=== PATIENT | female | born 1990 | race Caucasian/White ===

== ENCOUNTER 2020-05-01 11:03 | Outpatient (CLI) | payer OTHER, SELFPAY ==
[2020-05-02 01:31] LABS: SARS-CoV-2 RNA PCR Negative
== END 2020-05-01 11:04 | disposition home or self-care (01) ==
LOC: CHSLAB 11:07
PROVIDERS: PCP Family Medicine; Visit Provider Family Medicine
DX: Z20.828 Contact with and (suspected) exposure to other viral communicable diseases (principal)
CPT/HCPCS: 87635; C9803; U0003

== ENCOUNTER 2020-09-10 15:53 | Outpatient (CLI) | payer OTHER, SELFPAY ==
--- NOTE | ~2020-09-10 | XR_ITS ---
XR abdomen obstructive series DATE: 09/10/2020 16:18 INDICATION: Right acute abdominal pain. Pelvic and perineal pain. TECHNIQUE: Supine and upright AP views COMPARISON: None FINDINGS: There is a prominent of fecal material in the colon but no evidence of bowel obstruction. N o intraperitoneal free air. No visceromegaly or significant abnormal calcification. The psoas shadows are intact. No visceromegal y is detected. The lung bases are clear. Normal heart size. No pleural effusion. IMPRESSION: No evidence of bowel obstruction Reviewed, dictated and finalized at [facility]. Reviewed, dictated and finalized at location A.
[2020-09-10 16:21] LABS: Basophils Absolute Auto 0.08 K/mm3 (0.00-0.10); Basophils Percent Auto 0.8 % (0.0-1.0); Eosinophils Absolute Auto 0.41 K/mm3 (0.02-0.50); Hematocrit 37.8 % (35.0-49.0); Immature Granulocyte Absolute 0.03 K/mm3 (0.00-0.00); Immature Granulocyte Percent A 0.3 % (0.0-0.0); Lymphocytes Absolute Auto 2.77 K/mm3 (1.10-4.50); Lymphocytes Percent Auto 26.8 % (18.0-42.0); Mean Corpuscular HGB Conc 34.4 g/dL (32.0-36.0); Mean Corpuscular Hemoglobin 30.4 pg (27.0-31.0); Mean Corpuscular Volume 88.5 fL (78.0-102.0); Monocytes Absolute Auto 0.72 K/mm3 (0.10-0.90); Neutrophils Absolute Auto 6.3 K/mm3 (1.7-7.2); Neutrophils Percent Auto 61.1 % (50.0-70.0); Platelet Count Result 337 K/mm3 (150-420); Red Blood Count 4.27 M/mm3 (4.20-5.40); Red Cell Distribution Width 11.9 % (11.6-14.4); White Blood Count 10.4 K/mm3 (4.8-10.8)
[2020-09-10 16:24] LABS: Appearance Urine Clear (Clear); Bilirubin Urine Negative (Negative); Color Urine Yellow (Yellow); Glucose Urine UA Negative (Negative); Ketones Urine Negative (Negative); Leukocyte Esterase Ur Negative (Negative); Nitrate Urine Negative (Negative); Protein Urine Negative (Negative); Specific Grav Ur >= 1.030 (1.010-1.020); Urobilinogen Urine 0.2 mg/dL (0.2-1.0); pH Urine 5.5 (5.0-8.0)
[2020-09-10 16:32] LABS: Add Urine Microscopic? YES; Blood Urine Trace-Intact (Negative)
[2020-09-10 16:33] LABS: Bacteria Urine 1+ /hpf; Mucus Urine Heavy /lpf; Squamous Epithelial Cell Urine Moderate /hpf (Few); WBC Urine 0-3 /hpf (0-3)
[2020-09-10 16:36] LABS: Alanine Aminotransferase 21 U/L (14-59); Alkaline Phosphatase 67 U/L (46-116); Amylase 36 U/L (25-115); Anion Gap 8 mmol/L (8-16); Aspartate Amino Transferase 17 U/L (15-37); Bilirubin,Total 0.5 mg/dL (0.00-1.00); Blood Urea Nitrogen 13 mg/dL (7-18); Calcium 8.9 mg/dL (8.5-10.1); Carbon Dioxide 29 mmol/L (21-32); Chloride 101 mmol/L (98-108); Estimated Glomerular Filt Rate > 60; Glucose 78 mg/dL (70-99); Lipase 57 U/L (73-393); Osmolality Calculated 285 mOsm/kg (285-295); Potassium 3.4 mmol/L (3.5-5.1); Sodium 138 mmol/L (136-145); Total Protein 7.2 g/dL (6.4-8.2)
== END 2020-09-10 15:54 | disposition home or self-care (01) ==
LOC: CHSLAB 15:54
PROVIDERS: PCP Family Medicine; Visit Provider Family Medicine
DX: R10.2 Pelvic and perineal pain (principal)
CPT/HCPCS: 36415; 74019; 80053; 81001; 82150; 83690; 85025

== ENCOUNTER 2020-09-16 15:28 | Outpatient (CLI) | payer OTHER, SELFPAY ==
--- NOTE | ~2020-09-16 | US_ITS ---
EXAMINATION: US pelvic complete EXAM DATE: 09/16/2020 16:06 INDICATION: Pelvic pain. TECHNIQUE: Pelvic transabdominal sonogram was performed. There are multiple grayscale and Doppler im ages available for interpretation. There is no prior study for comparison. FINDINGS: Uterus measures 6.9 x 3.2 x 4.8 cm, and is morphologically normal. Endometrial stripe john sures 6-7 mm, within normal limits. There is no free pelvic fluid. Right adnexa: The ovary measures 3.3 x 2.7 x 3.0 cm and is morphologically normal. Ovarian vascular f low confirmed. Left adnexa: The ovary measures 2.4 x 1.2 x 0.9 cm and is morphologically normal. Ovarian vascular fl ow confirmed. IMPRESSION: Unremarkable pelvic ultrasound exam. Reviewed, dictated and finalized at location A.
== END 2020-09-16 15:29 | disposition home or self-care (01) ==
LOC: CHSIMG 15:29
PROVIDERS: PCP Family Medicine; Visit Provider Family Medicine
DX: R10.2 Pelvic and perineal pain (principal)
CPT/HCPCS: 76856

== ENCOUNTER 2021-07-02 15:08 | Outpatient (CLI) | payer OTHER, SELFPAY ==
[2021-07-02 16:24] LABS: SARS-CoV-2 Ag Positive (Negative)
== END 2021-07-02 15:09 | disposition home or self-care (01) ==
LOC: CHSLAB 15:12
PROVIDERS: PCP Family Medicine; Visit Provider Family Medicine
DX: U07.1 COVID-19 (principal); J06.9 Acute upper respiratory infection, unspecified
CPT/HCPCS: 87426; C9803

== ENCOUNTER 2021-11-04 18:45 | Emergency (ER) | payer OTHER, SELFPAY ==
--- NOTE | ~2021-11-04 | CT_ITS ---
EXAMINATION: CT abdomen pelvis wo con DATE: 11/04/2021 20:02 INDICATION: Right upper quadrant abdominal pain radiating to the back. Nausea. TECHNIQUE: Computed tomography (CT) of the abdomen and pelvis was performed without intravenous contr ast. Automated exposure control and iterative reconstruction technique were employed. The dose-length product was 351.11 mGy-cm. COMPARISON: CT abdomen and pelvis 12/01/2016 FINDINGS: The visualized portions of the lung bases are clear without pneumonia or pleural effusion. The heart size is normal. No pericardial effusion. The liver is normal. The gallbladder is distended. The spleen, pancreas, adrenal glands, and kidneys are normal. There is no urolithiasis. There is div erticulosis of the colon without evidence of diverticulitis. The appendix is normal. There are no pat hologically enlarged lymph nodes. There is no free intraperitoneal fluid. There is a benign bone kimberly nd in left femoral head. There is mild thoracic spondylosis. IMPRESSION: 1. Gallbladder distention suspicious for acute cholecystitis. Ultrasound is recommended. Reviewed, dictated and finalized at location A. IMPRESSION: 1. Gallbladder distention suspicious for acute cholecystitis. Ultrasound is rec ommended.
[2021-11-04 19:00] VITALS: BP 116/94; PULSE 98; RESP 16; TEMP 36.6; O2SAT 100
[2021-11-04 19:18] LABS: Appearance Urine Clear (Clear); Bilirubin Urine Negative (Negative); Color Urine Yellow (Yellow); Glucose Urine UA Negative (Negative); Ketones Urine Negative (Negative); Leukocyte Esterase Ur Negative (Negative); Nitrate Urine Negative (Negative); Protein Urine Negative (Negative); Specific Grav Ur >= 1.030 (1.010-1.020); Urobilinogen Urine 0.2 mg/dL (0.2-1.0); pH Urine 5.5 (5.0-8.0)
[2021-11-04 19:22] LABS: Add Urine Microscopic? YES; Bacteria Urine Trace /hpf; Blood Urine Trace-Intact (Negative); Squamous Epithelial Cell Urine Few /hpf (Few); WBC Urine 0-3 /hpf (0-3)
[2021-11-04 19:23] LABS: Mucus Urine Few /lpf; Pregnancy On Board Control Positive; Urine Pregnancy Test Negative
[2021-11-04] MEDS: SODIUM CHLORIDE 0.9% IV 1,000 ML 999 ML IV CONT (19:27)
[2021-11-04] MEDS: KETOROLAC 30 MG/ML VIAL (*BKC) IV PUSH (19:28)
--- NOTE | 2021-11-04 19:31 | ED.ABDPAIN ---
HPI - Abdominal Pain General Chief Complaint: Abdominal Pain Stated Complaint: PAIN IN rt SIDE Source: patient Mode of arrival: ambulatory History of Present Illness HPI narrative: this is a 31-year-old female who presents with abdominal pain left flank area radiating into her left groin and into the right lower quadrant with no fever chills rates her pain about a 6/10 with no nausea no fever chills no hematuria no shortness of breath or chest pain. MD elicited complaint: abdominal pain and flank pain Onset (ago): day(s) Pain Consistency: intermittent Related Data Allergies Allergy/AdvReac Type Severity Reaction Status Date / Time Penicillins Allergy Unknown Swelling Verified 11/04/21 19:55 of Lip/Tongue/Throat Review of Systems Review of Systems: All systems reviewed & are unremarkable except as noted in HPI and below PMFSH Past Medical History Medical History Tinnitus Social History Social History Smoking status: Never smoker Alcohol intake: current Substance use: current Exam Const: General: no acute distress and alert Orientation/consciousness: patient oriented x3 HENMT: Head: normal to inspection Eyes: Conjunctivae: conjunctivae normal Pupils: Equal, round and reactive pupils present Neck: Neck: normal visual inspection Chest: Chest palpation & inspection: normal inspection of the chest Resp: Effort & Inspection: normal respiratory effort Cardio: Rate: regular rate Rhythm: regular rhythm GI: GI Palp: Yes Soft to palpation and Yes Tenderness to palpation present (GI) Percussion: Yes normal to percussion : General: Yes no CVA tenderness Urinary Catheter: Urinary Catheter: patent and draining and urine clear Back/Spine/Pelvis: Back: no CVA tenderness Skin: General skin exam: normal color Rashes: no rashes Neuro: General: patient oriented x3 Extrem: General: normal to inspection and no pedal edema Psych: Mental Status: mental status grossly normal Affect: normal affect Course Course Emergency Course: Patient received IV fluids and pain medication a reassessment of patient symptoms have improved CT scan and labs reviewed with patient. MDM - Abdominal Pain Lab Data Labs: Lab Results 11/04/21 Range/Units 19:14 Urine Color Yellow (Yellow) Urine Appearance Clear (Clear) Urine pH 5.5 (5.0-8.0) Ur Specific Huntley >= 1.030 H (1.010-1.020) Urine Protein Negative (Negative) Urine Glucose (UA) Negative (Negative) Urine Ketones Negative (Negative) Ur Blood (Man) Trace-intact H (Negative) Urine Nitrate Negative (Negative) Urine Bilirubin Negative (Negative) Urine Urobilinogen 0.2 (0.2-1.0) mg/dL Ur Leukocyte Esterase Negative (Negative) Urine RBC 3-5 H (0-2) /hpf Urine WBC 0-3 (0-3) /hpf Ur Squamous Epith Cells Few (Few) /hpf Urine Bacteria Trace (None) /hpf Urine Mucus Few H /lpf Urine Test Negative Critical Care Time Critical Care Time Critical Care Time: No Discharge Plan Discharge Clinical Impression: Calculous cholecystitis with obstruction Patient Disposition: Home, Self-Care Condition: Stable Instructions: Antibiotic Form, Gallstones (ED) Additional Instructions: take medicine as prescribed and follow-up with primary care physician within the next 1 to 2 days for further evaluation treatment. Prescriptions: New tramadol [Ultram] 50 mg tablet 50 mg PO Q6H PRN (Reason: pain) Qty: 20 RF: 0 ondansetron 4 mg tablet,disintegrating 4 mg PO Q6H PRN (Reason: nausea and vomiting) Qty: 14 RF: 0 Follow-up/Referrals: Ced Willson MD [Primary Care Provider] - Time of Disposition: 20:22
[2021-11-04 19:33] LABS: Basophils Percent Auto 1.3 % (0.0-1.0); Eosinophils Absolute Auto 0.13 K/mm3 (0.02-0.50); Eosinophils Percent Auto 1.7 % (1.0-6.0); Hematocrit 36.9 % (35.0-49.0); Hemoglobin 12.8 g/dL (12.0-15.0); Immature Granulocyte Absolute 0.03 K/mm3 (0.00-0.00); Immature Granulocyte Percent A 0.4 % (0.0-0.0); Lymphocytes Percent Auto 35.9 % (18.0-42.0); Mean Corpuscular HGB Conc 34.7 g/dL (32.0-36.0); Mean Corpuscular Hemoglobin 30.5 pg (27.0-31.0); Mean Corpuscular Volume 88.1 fL (78.0-102.0); Mean Platelet Volume 9.6 fl (9.2-11.8); Monocytes Absolute Auto 0.58 K/mm3 (0.10-0.90); Monocytes Percent Auto 7.4 % (2.0-11.0); Neutrophils Absolute Auto 4.2 K/mm3 (1.7-7.2); Neutrophils Percent Auto 53.3 % (50.0-70.0); Platelet Count Result 334 K/mm3 (150-420); Red Blood Count 4.19 M/mm3 (4.20-5.40); Red Cell Distribution Width 11.8 % (11.6-14.4); White Blood Count 7.8 K/mm3 (4.8-10.8)
--- NOTE | 2021-11-04 19:53 | PC.NURSE ---
PT TO CT AT THIS TIME
[2021-11-04 19:55] LABS: Alanine Aminotransferase 10 U/L (14-59); Albumin Level 3.8 g/dL (3.4-5.0); Alkaline Phosphatase 77 U/L (46-116); Anion Gap 9 mmol/L (8-16); Bilirubin,Total 0.4 mg/dL (0.00-1.00); Blood Urea Nitrogen 12 mg/dL (7-18); Calcium 8.9 mg/dL (8.5-10.1); Carbon Dioxide 24 mmol/L (21-32); Chloride 105 mmol/L (98-108); Estimated CRCL calculation 63 ml/min; Estimated Glomerular Filt Rate > 60; Glucose 83 mg/dL (70-99); Osmolality Calculated 284 mOsm/kg (285-295); Potassium 3.8 mmol/L (3.5-5.1); Sodium 138 mmol/L (136-145); Total Protein 7.3 g/dL (6.4-8.2)
--- NOTE | 2021-11-04 19:59 | PC.NURSE ---
PT HAS RETURNED FROM CT
[2021-11-04 20:08] LABS: Aspartate Amino Transferase 18 U/L (15-37)
[2021-11-04 20:36] VITALS: BP 116/70; PULSE 88; RESP 18; TEMP 36.7; O2SAT 99
== END 2021-11-04 20:36 | disposition home or self-care (01) ==
PROVIDERS: Emergency Provider Emergency Medicine; PCP Family Medicine
DX: K81.9 Cholecystitis, unspecified (principal)
CPT/HCPCS: 36415; 74176; 80053; 81001; 81025; 85025; 96361; 96374; 99284; J1885; J7030

== ENCOUNTER 2021-11-08 08:26 | Emergency (ER) | payer OTHER, SELFPAY ==
[2021-11-08 08:49] VITALS: BP 111/81; PULSE 88; RESP 16; TEMP 36.6; O2SAT 98
[2021-11-08 09:07] LABS: Basophils Absolute Auto 0.1 K/mm3 (0.0-0.1); Basophils Percent Auto 1.3 % (0.2-1.2); Eosinophils Absolute Auto 0.3 K/mm3 (0-0.3); Eosinophils Percent Auto 3.2 % (0-4.4); Hematocrit 42.9 % (37.0-47.0); Hemoglobin 14.6 g/dL (12.0-15.0); Immature Granulocyte Absolute 0.02 K/mm3 (0.00-0.031); Immature Granulocyte Percent A 0.2 % (0-0.5); Lymphocytes Absolute Auto 1.79 K/mm3 (0.9-3.2); Mean Corpuscular Hemoglobin 30.4 pg (26-34); Mean Corpuscular Volume 89.4 fl (80-100); Mean Platelet Volume 9.9 fl (7.4-10.4); Monocytes Absolute Auto 0.5 K/mm3 (0.1-0.6); Monocytes Percent Auto 5.9 % (2.6-8.5); Neutrophils Absolute Auto 5.8 K/mm3 (1.3-6.7); Neutrophils Percent Auto 68.4 % (45.5-73.1); Platelet Count Result 347 k/mm3 (150-375); Red Cell Distribution Width 11.9 % (11.5-14.5); White Blood Count 8.5 K/mm3 (4.5-10.0)
[2021-11-08 09:17] LABS: Alanine Aminotransferase 306 U/L (6-35); Albumin Level 4.3 g/dL (3.5-5.1); Alkaline Phosphatase 177 U/L (38-126); Anion Gap 6 mmol/L (8-16); Aspartate Amino Transferase 109 U/L (14-36); Bilirubin,Total 0.3 mg/dL (0.2-1.3); Blood Urea Nitrogen 8 mg/dL (7-17); Calcium 9.1 mg/dL (8.4-10.2); Carbon Dioxide 29 mmol/L (22-30); Chloride 104 mmol/L (98-107); Estimated Glomerular Filt Rate > 60; Glucose 108 mg/dL (65-110); Lipase 51 U/L (23-300); Potassium 3.9 mmol/L (3.4-5.0); Sodium 139 mmol/L (137-145)
[2021-11-08 09:44] LABS: Add Urine Microscopic? YES; Appearance Urine Slightly Cloudy (Clear); Bilirubin Urine Negative (Negative); Blood Urine Trace-lysed (Negative); Color Urine Yellow (Yellow); Glucose Urine UA Negative (Negative); Ketones Urine Negative (Negative); Leukocyte Esterase Ur 1+ LEU/UL (Negative); Nitrate Urine Negative (Negative); Protein Urine Negative (Negative); Specific Grav Ur 1.025 (1.001-1.035); Urobilinogen Urine 0.2 mg/dL (<2.0); pH Urine 5.5 (5.0-9.0)
[2021-11-08 09:53] LABS: Mucus Urine Heavy /lpf; Squamous Epithelial Cell Urine Many /hpf (Few)
--- NOTE | 2021-11-08 10:04 | ED.ABDPAIN ---
HPI - Abdominal Pain General Chief Complaint: Abdominal Pain Stated Complaint: Gallbladder Issues Time Seen by Provider: 11/08/21 08:52 Source: patient Mode of arrival: ambulatory Limitations: no limitations History of Present Illness HPI narrative: 31 y/o female presents to the ER today for recurrent issues with RUQ abdominal pain. She says that she knows it her her gallbladder and has a history of gallstones. She was seen somewhere else a few days ago and they were not able to do an US and told her that she would need an US for further evaluation so she came here today. She reports that her symptoms are improved today. She just has a dull ache today. She just had full breakfast at 7:30am today, eggs and gayle. She does not have general surgeon to see for follow up for this problem. She has had problems with her gallbladder for a couple of years now. She reports having an US done in the past that did show gallstones but she says at that time, they did not feel like it needed to be removed. She denies any fever or chills. No nausea or vomiting or diarrhea today. Related Data Allergies Allergy/AdvReac Type Severity Reaction Status Date / Time Penicillins Allergy Unknown Swelling Verified 11/08/21 08:52 of Lip/Tongue/Throat Review of Systems Constitutional: Constitutional: Denies chills and Denies fever(s) Eyes: Eyes: Reports no additional eye complaints ENT: Denies sore throat Cardiovascular: Cardiovascular: Denies chest pain Respiratory: Respiratory: Denies cough, Denies dyspnea and Denies wheezing Gastrointestinal: Gastrointestinal: Reports abdominal pain, Denies diarrhea, Denies nausea and Denies vomiting Genitourinary: Genitourinary: Denies flank pain Musculoskeletal: Musculoskeletal: Denies back pain Neurologic: Denies dizziness and Denies headache(s) Psychiatric: Psychiatric: Denies anxiety and Denies depression Endocrine: Endocrine: Denies fatigue Hematologic/Lymphatic: Hematologic/Lymphatic: Reports no additional hematologic/lymphatic complaints Allergic/Immunologic: Allergic/Immunologic: Reports no additional allergic/immunologic complaints [facility] Past Medical History Medical History Tinnitus Social History Social History Smoking status: Never smoker Alcohol intake: current Substance use: current Exam Const: General: healthy appearing, no acute distress and alert Orientation/consciousness: patient oriented x3 HENMT: Head: normal to inspection Eyes: Conjunctivae: conjunctivae normal Neck: Neck: normal visual inspection Chest: Chest palpation & inspection: normal inspection of the chest Resp: Effort & Inspection: normal respiratory effort Auscultation: clear to auscultation bilaterally Cardio: Rate: regular rate Rhythm: regular rhythm GI: GI Palp: Yes Soft to palpation, No Tenderness to palpation present (GI) and No Guarding due to palpation present (GI) Auscultation: normal bowel sounds : General: Yes no CVA tenderness Back/Spine/Pelvis: Back: no CVA tenderness Skin: General skin exam: normal color Rashes: no rashes Neuro: General: patient oriented x3 and moves all extremities Extrem: General: normal to inspection Psych: Mental Status: mental status grossly normal Affect: normal affect Course Course Emergency Course: Pt has had full breakfast so will not be able to do gallbladder US at today's visit. Her pain is largely resolved today so this can be done on a non urgent outpatient basis. I will give her the number of general surgery to schedule outpatient follow up and evaluation. Vital Signs Vital signs: Vital Signs Temperature 36.6 C 11/08/21 08:49 Pulse Rate 88 11/08/21 08:49 Respiratory Rate 16 11/08/21 08:49 Blood Pressure 111/81 11/08/21 08:49 Pulse Oximetry 98 11/08/21 08:49 Temperature 36.6 C 11/08/21 08:4
[2021-11-08 10:58] VITALS: BP 114/80; PULSE 100; RESP 16; O2SAT 100
== END 2021-11-08 10:58 | disposition home or self-care (01) ==
PROVIDERS: Emergency Medicine; Emergency Provider Nurse Practitioner Family; PCP Family Medicine
DX: K80.50 Calculus of bile duct without cholangitis or cholecystitis without obstruction (principal)
CPT/HCPCS: 36415; 80053; 81001; 83690; 85025; 99283

== ENCOUNTER 2021-12-08 10:18 | Outpatient (CLI) | payer OTHER, SELFPAY ==
[2021-12-08 10:54] LABS: Amylase 81 U/L (30-110)
== END 2021-12-08 10:19 | disposition home or self-care (01) ==
LOC: ANHSURGERY 10:21
PROVIDERS: PCP Family Medicine; Visit Provider Surgery
DX: Z01.812 Encounter for preprocedural laboratory examination (principal); K80.00 Calculus of gallbladder with acute cholecystitis without obstruction
CPT/HCPCS: 36415; 82150; 86850; 86900; 86901

== ENCOUNTER 2021-12-10 04:09 | Day surgery (SDC) | payer OTHER, SELFPAY ==
--- NOTE | 2021-12-02 13:06 | PC.NURSE ---
Report to the Outpatient Waiting Room, entrance under the green pavilion located off [facility], at time 1000 on date __12/10/21 . OR Time: _1200 . - You and your visitor will be asked a series of questions to screen for COVID 19 for your protection. - Only one visitor is allowed at this time. - The patient visitor is requested to leave or wait in car when not with patient. - A mask is required within the hospital. Patients may have clear liquids (water, carbonated beverages, clear teas, apple juice) until 3 hours prior to surgery with a maximum of 20 ounces. - No food from midnight until time of surgery - Infants may have breast milk until 4 hours before surgery, infant formula 6 hours prior to surgery. - Children will be allowed to drink immediately following surgery. If applicable, please bring a bottle or sippy cup to assist with drinking. Juice, water, soda, and popsicles are readily available. For infants on formula, please bring formula the day of surgery. Pacifiers are allowed. Take the following medications with a SIP of water the morning of surgery: __NONE Medications to discontinue per physician ____NONE Date to take last dose Please no make-up, nail colombian, hairspray, perfume, deodorant, or body powder the day of surgery. No jewelry (including any body piercings) or valuables the day of surgery, leave them at home. Please take a shower or bath the night before, or the morning of, surgery with an antibacterial soap. Wear comfortable, loose fitting clothing. Children are encouraged to wear pajamas. - Jewelry must be removed prior to entering the operating room. Rings and piercings that are not removed may be cut off. - The hospital will not accept responsibility for valuables. HIBICLENS SHOWER MORNING OF SURGERY - Please leave all valuables, including medications, at home the day of surgery. If you are going home after surgery, a licensed dolly driver must drive you home. - NO public transportation without another adult. - We recommend that an adult stay with you for 24 hours following discharge. - We also recommend that you do not drive, make important decision, drink alcoholic beverages, or take any drugs that were not prescribed by your health care provider for at least 24 hours after your discharge time. For Pediatric surgeries, we recommend two adults accompany the child home (only one inside the building at this time). Follow any additional instructions given to you from your surgeon. If you or anyone in your household have experienced Covid symptoms in the past week, please notify your surgeon or the nurse liaison at the phone number below for possible testing. Telephone instructions given to __PATIENT and asked if any additional questions and then verbalized understanding. Patient advised to call surgeon office or pre surgery nurse liaison [phone] if any additional questions.
[2021-12-02 13:07] VITALS: BMI 32.6
--- NOTE | 2021-12-09 14:54 | P.PNAN_ITS ---
Anes - Initial Pre Proc Eval Procedure: Operation Date: 12/10/21 12:00 Proposed Procedures p Laparoscopic Cholecystectomy, Possible Open - Luan Mancera DO Date/Time: 12/09/21 14:54 Surgeon: Luan Mancera DO Pre Op Diagnosis: Acute Calculous Cholecystitis Patient Data Age: 31 Gender: F Height: 1.45 m Weight: 68.5 kg Allergies Allergy/AdvReac Type Severity Reaction Status Date / Time blackberry Allergy Severe THROAT Verified 12/10/21 10:39 SWELLING Penicillins Allergy Unknown Swelling Verified 12/10/21 10:39 of Lip/Tongue/Throat latex AdvReac Intermediate rash Verified 12/10/21 10:39 Home Medications Medication Instructions Recorded Confirmed Type ondansetron 4 mg disintegrating 4 mg PO Q6H PRN nausea and 11/04/21 12/10/21 Rx tablet vomiting #14 tabs tramadol 50 mg tablet (Ultram) 50 mg PO Q6H PRN pain #20 tabs 11/04/21 12/10/21 Rx ibuprofen 600 mg tablet 600 mg PO TID PRN pain #30 tabs 11/08/21 12/10/21 Rx Patient hx anesthesia problems: none Family hx anesthesia problems: none Results Review: All pre-operative results and documents have been reviewed as part of the pre- operative evaluation. [facility] Past Medical History Medical History (Updated 12/09/21 @ 14:54 by Bro Mae MD) Depression Obesity Tinnitus Surgical History Surgical History H/O elbow surgery H/O knee surgery History of cosmetic plastic surgery FACIAL RECONSTRUCTION A CHILD Family History Family History Father Diabetes mellitus Heart problem Hypothyroidism Mother Brain tumor Fibromyalgia Other Brain cancer Cerebrovascular accident Heart disease Hypertension Lung cancer Thyroid cancer Social History Social History Smoking status: Never smoker Alcohol intake: current Substance use: current Substance use type: marijuana Last use: 12/02/21 Living arrangements: with roommate(s) Additional occupation/education comments: [employer] Spiritual care concerns: No Anes - Eval Final PreProcedure Day of Procedure 06/16/22 14:54 Patient weight: obese Heart: regular rate and rhythm Lungs: clear to auscultation and normal air movement Airway: Mallampati scale class II Neurological: alert and oriented Last oral intake: >/= 8 hours ASA classification: II Emergent: no Anesthetic plan: proceed Anesthesia type and monitoring: general ETT Results Review: All pre-operative results and documents have been reviewed as part of the pre- operative evaluation. Informed Consent: The patient's anesthetic plan and its attendant risks and benefits were discussed with the patient/family/POA. Questions were solicited and answers provided to the satisfaction of the patient/family/POA.
[2021-12-10] VITALS (10 sets, daily range): BP systolic 109–125; BP diastolic 62–78; PULSE 71–108; RESP 14–20; TEMP 36.8–36.9; O2SAT 100; BMI 31.0
[2021-12-10] MEDS: LACTATED RINGERS 1,000 ML 30 ML IV CONT ×2 (10:59→13:37)
[2021-12-10] MEDS: KETOROLAC 15 MG/ML VIAL (*BKC) IV PUSH (11:00)
[2021-12-10] MEDS: ACETAMINOPHEN 500 MG TABLET 1000 MG PO (11:00)
--- NOTE | 2021-12-10 11:33 | WPDHPUPDATE1 ---
History and Physical Update Update Date/Time: 12/10/21 11:33 History and Physical has been reviewed, including an updated exam of the patient. There are NO changes in the patient's condition. Risks, benefits, and alternatives have been discussed and questions answered. Patient agrees to proceed with procedure.
[2021-12-10] MEDS: ceFAZolin 2 GM/D5W 50 ML 2 GM/50 ML BAG IVPB (11:51)
[2021-12-10] MEDS: LIDO 1%/EPINEPHRINE/PF 1:200,000 30 ML VIAL XX (12:21)
--- NOTE | 2021-12-10 12:53 | W.PM.PROC2 ---
Procedure Note - Detailed Date of Procedure 12/10/21 Pre-op Diagnosis Acute Calculous Cholecystitis Post-op Diagnosis Other (Chronic calculous cholecystitis, gallbladder hydrops) Procedure Performed Laparoscopic Cholecystectomy Surgeon Luan Mancera, DO Anesthesia General and Local (0.5% bupivacaine) Indications This is a 31-year-old woman who presented with complaints of upper abdominal pain for the past 4-6 weeks. She had gone to [facility] and CT showed evidence of a distended gallbladder suspicious for acute cholecystitis. She had a prior history of gallbladder ultrasound which showed evidence of cholelithiasis. She recovered from that episode and has been staying on a low-fat diet. Discussions were made with the patient about treatment options and decision was made to proceed with laparoscopic cholecystectomy, possible open. Findings Laparoscopic cholecystectomy was performed. The gallbladder had chronic wall thickening and was distended. I had to aspirate the gallbladder to decompress it to allow to be grasped and manipulated. The aspirate was mostly clear mucus bile. There were gallstones at the neck of the gallbladder. The cystic duct appeared normal in size. The gallbladder was removed and sent to the lab for pathology. Description of Procedure Procedure as well as risks, benefits, and alternatives were discussed with patient. Written consent was obtained and placed in chart prior to procedure. The patient was brought back to surgical suite. Patient was placed in supine position on operating table. Time-out was done to confirm patient and procedure. Patient was then intubated by the anesthesia department. Abdomen was prepped and draped in sterile fashion using chlorhexidine prep. 0.5% bupivacaine with epinephrine was infiltrated at each site of incision. A 5 millimeter incision was made near the umbilicus, and a 5 millimeter Optiview trocar was advanced through the abdominal layers under direct visualization. Once inside the abdominal cavity, carbon dioxide was insufflated to create a pneumoperitoneum. The camera was inserted and the abdomen was inspected. No immediate abnormalities were identified. The patient was placed in reverse Trendelenburg position and rotated slightly to the left. An 11 millimeter incision was made in the subxiphoid region, and an 11 millimeter trocar was inserted under direct visualization. Two 5 millimeter incisions were made in the right upper quadrant, and two 5 millimeter trocars were inserted under direct visualization. The gallbladder was identified and grasped at the fundus and retracted superiorly. It was then grasped at the infundibulum retracted laterally. Careful dissection around the neck of the gallbladder was performed using blunt dissection with a [place] grasper and hook electrocautery. The cystic duct was identified, and a window was created behind it. The cystic artery was also identified and a window was created behind it. The critical view of safety was identified, visualizing the cystic duct running directly into the neck of the gallbladder, and the cystic artery running directly into the wall of the gallbladder. A 5 millimeter clip conveyor belt installer was then used to place 2 clips proximally and 1 clip distally on both the cystic duct and cystic artery. They were then both transected using endoscopic scissors. Once safely away from the bere hepatitis, the gallbladder was dissected free from the liver bed using hook electrocautery. Hemostasis was achieved along the way. The gallbladder was removed completely and then removed through the subxiphoid port. The liver bed was then inspected. Hemostasis appeared adequate, and our clips appeared secure. The area was gently irrigated with sterile saline. No other abnormalities were seen. The patient was flattened out in bed, and 1 final inspection was made around the abdominal cavity. The subxiphoid port was removed, and a Cart
[2021-12-10] MEDS: ONDANSETRON INJ 4 MG/2 ML VIAL IV PUSH (14:01)
[2021-12-10] MEDS: HALOPERIDOL LACTATE 5 MG/ML VIAL 1 MG IV PUSH (14:36)
[2021-12-10] MEDS: SCOPOLAMINE 1.5 MG PATCH TRANSDERM (14:40)
== END 2021-12-10 15:30 | disposition home or self-care (01) ==
PROVIDERS: PCP Family Medicine; Visit Provider Surgery
PROC: 0FT44ZZ Resection of Gallbladder, Percutaneous Endoscopic Approach (ICD-10-PCS; CPT 47562; principal; 2021-12-10 12:00)
DX: K80.12 Calculus of gallbladder with acute and chronic cholecystitis without obstruction (principal); K82.1 Hydrops of gallbladder; R59.0 Localized enlarged lymph nodes; R10.11 Right upper quadrant pain; F32.A Depression, unspecified; K80.00 Calculus of gallbladder with acute cholecystitis without obstruction; F12.90 Cannabis use, unspecified, uncomplicated; E66.9 Obesity, unspecified; Z68.31 Body mass index [BMI] 31.0-31.9, adult
CPT/HCPCS: 47562; 88304; A9270; J0690; J1100; J1170; J1630; J1885; J2250; J2370; J2405; J2704; J2710; J3010; J7030; J7120

== ENCOUNTER 2022-10-30 21:38 | Emergency (ER) | payer OTHER, SELFPAY ==
[2022-10-30 21:44] VITALS: BP 141/100; PULSE 88; RESP 20; TEMP 36.6; O2SAT 100
--- NOTE | 2022-10-30 21:44 | ED.GENADULT ---
HPI - General Adult General Chief complaint: Unspecified Stated complaint: Insect Bite Source: patient Mode of arrival: ambulatory Limitations: no limitations History of Present Illness HPI narrative: 32 year old female presents to the Emergency Department complaining of spider bite to left upper leg and now has spread to suprapubic region. Patient was seen by PCP and Rx german. States is spreading. No spontaneous drainage. Onset (ago): day(s) (6) Location: pelvis (suprapubic) and lower extremity Associated symptoms: denies other symptoms Treatments prior to arrival: other (saw PCP and Rx German) Related Data Allergies Allergy/AdvReac Type Severity Reaction Status Date / Time blackberry Allergy Severe THROAT Verified 12/30/21 09:07 SWELLING Penicillins Allergy Unknown Swelling Verified 12/30/21 09:07 of Lip/Tongue/Throat latex AdvReac Intermediate rash Verified 12/30/21 09:07 Review of Systems Review of Systems: All systems reviewed & are unremarkable except as noted in HPI and below Constitutional: Constitutional: Reports as per HPI, Denies body ache(s), Denies chills and Denies fever(s) Eyes: Eyes: Reports as per HPI ENT: Reports system reviewed and no additional complaints, except as documented Cardiovascular: Cardiovascular: Reports as per HPI Respiratory: Respiratory: Reports as per HPI Gastrointestinal: Gastrointestinal: Reports as per HPI Genitourinary: Genitourinary: Reports no additional female genitourinary complaints Musculoskeletal: Musculoskeletal: Reports no additional musculoskeletal complaints Integumentary/Breasts: Skin/Breast: Reports system reviewed and no additional complaints, except as docu Neurologic: Reports system reviewed and no additional complaints, except as documented PMFSH Past Medical History Medical History Depression Obesity Tinnitus Surgical History Surgical History H/O elbow surgery H/O knee surgery History of cosmetic plastic surgery FACIAL RECONSTRUCTION A CHILD Hx laparoscopic cholecystectomy 12/10/21 Family History Family History Father Diabetes mellitus Heart problem Hypothyroidism Mother Brain tumor Fibromyalgia Other Brain cancer Cerebrovascular accident Heart disease Hypertension Lung cancer Thyroid cancer Social History Social History Smoking status: Never smoker Alcohol intake: current Substance use: current Substance use type: marijuana Last use: 12/02/21 Living arrangements: with roommate(s) Occupation/Education: occupation Additional occupation/education comments: [employer] Spiritual care concerns: No Exam Const: General: cooperative, healthy appearing, no acute distress, alert, awake, anxious and overweight Nutritional Appearance: average body habitus Orientation/consciousness: oriented to person Limitations: no limitations HENMT: Head: normal to inspection Face/Nose/Sinus: Normal external nose present Face and sinus: normal facial exam Eyes: General: appearance normal, both eyes and all related structures Pupils: Equal, round and reactive pupils present EOM: EOMs intact bilaterally Neck: Neck: normal visual inspection Chest: Chest palpation & inspection: normal inspection of the chest Resp: Effort & Inspection: normal respiratory effort Cardio: Rate: regular rate GI: Inspection: normal to inspection Back/Spine/Pelvis: Back: no CVA tenderness Skin: General skin exam: normal color and erythema (left upper leg/buttock region with central raised fluctuant region. ) Neuro: General: patient oriented x3 Other: Neuro grossly intact Extrem: General: full ROM Left lower extremity: hip/thigh (erythema and abscess to left upper leg/buttock) Psych: Ap
[2022-10-30] MEDS: LIDOCAINE HCL 1% LOCAL INJ 10 ML VIAL (22:01)
[2022-10-30 22:29] VITALS: BP 121/81; PULSE 88; RESP 20; TEMP 36.7; O2SAT 100
--- NOTE | 2022-11-03 16:23 | PC.NURSE ---
final wound culture report reviewed for left buttocks, heavy growth of MRSA found. bactrim DS sensitive and Bactrim DS prescribed at pt discharge from ER. no change in care plan
== END 2022-10-30 22:31 | disposition home or self-care (01) ==
PROVIDERS: Emergency Provider Emergency Medicine; PCP Family Medicine
DX: L02.31 Cutaneous abscess of buttock (principal); L03.317 Cellulitis of buttock; A49.02 Methicillin resistant Staphylococcus aureus infection, unspecified site
CPT/HCPCS: 10060; 87070; 87147; 87186; 87205; 99283

== ENCOUNTER 2023-12-09 00:33 | Emergency (ER) | payer OTHER, SELFPAY ==
--- NOTE | ~2023-12-09 | CT_ITS ---
EXAMINATION: CT abdomen pelvis w con DATE: 12/09/2023 01:35 INDICATION: Left lower abdominal pain for 8 hours. History of ovarian cyst. TECHNIQUE: Computed tomography (CT) of the abdomen and pelvis was performed with 100 CC Omnipaque 350 intravenous contrast. Automated exposure control and iterative reconstruction technique were employe d. Exam dose: 11/04/2021 CT abdomen pelvis mGy-cm total exam DLP. COMPARISON: 11/04/2021 CT abdomen pelvis FINDINGS: Normal heart size. No pericardial or pleural effusion. Status post cholecystectomy. No hepatic, splenic, pancreatic, adrenal or renal space occupying mass l esion is detected. No bile duct or pancreatic duct dilatation. No urinary tract calculus or hydroureteronephrosis. Approximately 4.2 cm wide and 2.3 cm wide air-fluid levels noted in the upper abdomen either side of midline in the duodenal area, likely duodenal diverticula. The stomach is probably distended with fluid and foodstuff. Normal appendix. Diverticulosis of the colon; no CT evidence of diverticulitis. No bowel obstruction or intraperitoneal free air. Normal caliber of the abdominal aorta. No intraperitoneal or retroperitoneal or pelvic mass lesion or adenopathy or ascites. Retroverted uterus. Probable involuting left breast 1.5 cm corpus luteum cyst. Included skeletal structures are unremarkable. IMPRESSION: Status post cholecystectomy Duodenal diverticula Diverticulosis of the colon; no evidence of diverticulitis Normal appendix Retroverted uterus Probable involuting approximately 1.5 cm left ovarian corpus luteum cyst; no abnormal pelvic fluid co llection Reviewed, dictated and finalized at [facility]. Reviewed, dictated and finalized at [facility] IMPRESSION: Status post cholecystectomy Duodenal diverticula Diverticulosis of the colon; no evidence of diverticulitis Normal appendix Retroverted uterus Probable involuting approximately 1.5 cm left ovarian corpus luteum cyst; no ab normal pelvic fluid collection
[2023-12-09 00:37] VITALS: BP 130/85; PULSE 61; RESP 18; TEMP 36.2; O2SAT 96
--- NOTE | 2023-12-09 00:42 | ED.FEMALEGU ---
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 She has left-sided upper quadrant abdominal pain. She says started yesterday and has gotten progressively worse. She has a history of multiple ovarian cysts. She has a history of once his rupturing and actually affecting her liver. She states this does feel the same as the ovarian cyst the past. She has had her left ovary removed since. She denies any other symptoms. MD elicited complaint: pelvic pain and flank pain Pertinent past history: other ( Left ovary removal) Onset (ago): day(s) Location of symptoms: pelvis and flank Severity: moderate Female Urogenital Radiation: Non-Radiating Severity scale (1-10): 6 Quality of pain: cramping and sharp Consistency: constant Vaginal discharge: none Vaginal bleeding: none Urinary symptoms: Flank Pain Exacerbating factors: movement and palpation Relieving factors: none Associated symptoms: abdominal pain, nausea and back pain Treatment prior to arrival: none Sexual activity: No Patient : No Possible : unsure if Related Data Home Medications Medication Instructions Recorded Confirmed No Home Medications 12/09/23 12/09/23 Allergies Allergy/AdvReac Type Severity Reaction Status Date / Time blackberry Allergy Severe THROAT Verified 12/30/21 09:07 SWELLING Penicillins Allergy Unknown Swelling Verified 12/30/21 09:07 of Lip/Tongue/Throat latex AdvReac Intermediate rash Verified 12/30/21 09:07 Review of Systems Review of Systems: All systems reviewed & are unremarkable except as noted in HPI and below Constitutional: Constitutional: Reports as per HPI Eyes: Eyes: Reports no additional eye complaints ENT: Reports system reviewed and no additional complaints, except as documented Cardiovascular: Cardiovascular: Reports no additional cardiovascular complaints Respiratory: Respiratory: Reports no additional respiratory complaints Gastrointestinal: Gastrointestinal: Reports abdominal pain and Reports nausea Genitourinary: Genitourinary: Reports as per HPI, Reports pelvic pain and Reports flank pain Musculoskeletal: Musculoskeletal: Reports no additional musculoskeletal complaints Integumentary/Breasts: Skin/Breast: Reports system reviewed and no additional complaints, except as docu Neurologic: Reports system reviewed and no additional complaints, except as documented Psychiatric: Psychiatric: Reports no additional psychiatric complaints Endocrine: Endocrine: Reports no additional endocrine complaints Hematologic/Lymphatic: Hematologic/Lymphatic: Reports no additional hematologic/lymphatic complaints Allergic/Immunologic: Allergic/Immunologic: Reports no additional allergic/immunologic complaints PMFSH Past Medical History Medical History Depression Obesity Tinnitus Surgical History Surgical History H/O elbow surgery H/O knee surgery History of cosmetic plastic surgery FACIAL RECONSTRUCTION A CHILD Hx laparoscopic cholecystectomy 12/10/21 Family History Family History Father Diabetes mellitus Heart problem Hypothyroidism Mother Brain tumor Fibromyalgia Other Brain cancer Cerebrovascular accident Heart disease Hypertension Lung cancer Thyroid cancer Social History Social History Smoking status: Never smoker Alcohol intake: current Substance use: current Substance use type: marijuana Last use: 12/02/21 Too berrios
[2023-12-09 00:52] LABS: Basophils Absolute Auto 0.13 K/mm3 (0.00-0.10); Basophils Percent Auto 1.3 % (0.0-1.0); Eosinophils Absolute Auto 0.48 K/mm3 (0.02-0.50); Eosinophils Percent Auto 4.7 % (1.0-6.0); Hematocrit 37.8 % (35.0-49.0); Hemoglobin 13.2 g/dL (12.0-15.0); Immature Granulocyte Absolute 0.01 K/mm3 (0.00-0.00); Immature Granulocyte Percent A 0.1 % (0.0-0.0); Lymphocytes Absolute Auto 2.96 K/mm3 (1.10-4.50); Lymphocytes Percent Auto 29.2 % (18.0-42.0); Mean Corpuscular HGB Conc 34.9 g/dL (32-36); Mean Corpuscular Hemoglobin 31.1 pg (27.0-31.0); Mean Corpuscular Volume 88.9 fL (78.0-102.0); Mean Platelet Volume 9.6 fl (9.2-11.8); Monocytes Absolute Auto 0.87 K/mm3 (0.10-0.90); Monocytes Percent Auto 8.6 % (2.0-11.0); Neutrophils Absolute Auto 5.68 K/mm3 (1.70-7.20); Neutrophils Percent Auto 56.1 % (50.0-70.0); Platelet Count Result 322 K/mm3 (150-420); Red Blood Count 4.25 M/mm3 (4.20-5.40); Red Cell Distribution Width 11.9 % (11.6-14.4); White Blood Count 10.1 K/mm3 (4.8-10.8)
--- NOTE | 2023-12-09 00:52 | PC.NURSE ---
patient changed into a gown. warm blanket was given
[2023-12-09 01:12] LABS: Alanine Aminotransferase 28 U/L (14-59); Albumin Level 3.6 g/dL (3.4-5.0); Alkaline Phosphatase 78 U/L (46-116); Anion Gap 7 mmol/L (4-12); Aspartate Amino Transferase 23 U/L (15-37); Bilirubin,Total 0.3 mg/dL (0.00-1.00); Blood Urea Nitrogen 18 mg/dL (7-18); Calcium 9.4 mg/dL (8.5-10.1); Carbon Dioxide 31 mmol/L (21-32); Chloride 104 mmol/L (98-108); Estimated Glomerular Filt Rate > 60; Glucose 85 mg/dL (70-99); Osmolality Calculated 294 mOsm/kg (285-295); Potassium 3.6 mmol/L (3.5-5.1); Sodium 142 mmol/L (136-145); Total Protein 7.2 g/dL (6.4-8.2)
[2023-12-09 01:13] LABS: Appearance Urine Clear (Clear); Bilirubin Urine Negative (Negative); Blood Urine Trace-intact (Negative); Color Urine Yellow (Yellow); Glucose Urine UA Negative (Negative); Ketones Urine Negative (Negative); Leukocyte Esterase Ur Negative LEU/UL (Negative); Nitrate Urine Negative (Negative); Protein Urine Negative (Negative); Specific Grav Ur 1.025 (1.010-1.020); Urobilinogen Urine 0.2 mg/dL (0.2-1.0)
[2023-12-09 01:15] LABS: Pregnancy On Board Control Positive; Urine Pregnancy Test Negative
[2023-12-09 01:19] LABS: Add Urine Microscopic? YES; Bacteria Urine Trace /hpf; RBC Urine 0-2 /hpf (0-2); Squamous Epithelial Cell Urine Few /hpf (Few); WBC Urine 0-3 /hpf (0-3)
--- NOTE | 2023-12-09 01:31 | PC.NURSE ---
patient returned to room from ct
--- NOTE | 2023-12-09 03:33 | PC.NURSE ---
Pt up ambulated to BR steadily, and back to bed, still awaiting CT results. Pt has no c/o at this time.
--- NOTE | 2023-12-09 03:36 | PC.NURSE ---
Pt reports feeling some better and not wanting to wait for CT results. ERP D[facility] explained to pt about wait times and POC to d/c home and call her w/ results. Pt agreeable to POC and wanting to leave so she can get to work. VSS.
[2023-12-09 03:42] VITALS: BP 116/70; PULSE 88; RESP 18; TEMP 36.4; O2SAT 100
== END 2023-12-09 03:42 | disposition home or self-care (01) ==
PROVIDERS: Emergency Provider Family Medicine; PCP Family Medicine
DX: N83.202 Unspecified ovarian cyst, left side (principal)
CPT/HCPCS: 36415; 74177; 80053; 81001; 81025; 85025; 99284; Q9967

== ENCOUNTER 2025-06-02 11:56 | Outpatient (CLI) | payer OTHER, SELFPAY ==
[2025-06-02 13:05] LABS: Influenza A QL RT-PCR Negative (Negative); Influenza B QL RT-PCR Negative (Negative); RSV RNA, RT-PCR Negative (Negative); SARS-CoV-2 RNA PCR Negative (Negative)
== END 2025-06-02 11:57 | disposition home or self-care (01) ==
LOC: CHSLAB 11:58
PROVIDERS: PCP Family Medicine; Visit Provider Family Medicine
DX: J06.9 Acute upper respiratory infection, unspecified (principal)
CPT/HCPCS: 87637